=== PATIENT | female | born 1955 | race Caucasian/White ===

== ENCOUNTER 2018-03-15 11:17 | Inpatient (IN) ==
[2018-03-15 12:15] LABS: Basophils % 0.5 % (0.0-0.8); Eosinophils # 0.1 10*3/uL (0.0-0.87); Eosinophils % 1.4 % (0.00-10.9); Hematocrit 24.8 VOL% (35.7-47.0); Hemoglobin 6.7 GM/DL (12.0-16.0); Immature Granulocytes % 0.7 %; Immature Granulocytes Absolute 0.03 #; Lymphocytes # 1.1 10*3/uL (1.4-4.0); Lymphocytes % 24.1 % (21.3-54.2); Mean Corpuscular Hemoglobin 21 PG (27-34); Mean Corpuscular Volume 76.3 FL (87-102); Mean Platelet Volume 9.2 FL (9.6-12.0); Monocytes # 0.5 10*3/uL (0.11-0.8); Monocytes % 11.6 % (1.7-12.7); Neutrophils # 2.7 10*3/uL (1.4-7.4); Neutrophils % 61.7 % (38.7-73.9); Platelet Count 282 T/CUMM (130-400); Red Blood Count 3.25 MC/CUMM (3.8-5.5); Red Cell Distribution Width 18.2 % (9.3-17.3); White Blood Count 4.4 T/CUMM (4-12)
[2018-03-15 12:36] LABS: Hypochromasia 2+; Microcytosis 1+; Ovalocytes Few; Platelet Estimate Normal; Polychromasia Slight; Tear Drop Cells Slight
[2018-03-15 12:37] LABS: Alanine Aminotransferase 18 U/L (13-56); Albumin 3.2 G/DL (3.4-5.0); Alkaline Phosphatase 136 U/L (45-117); Aspartate Amino Transferase 14 U/L (0-37); Bilirubin,Total < 0.39 MG/DL (0.2-1.0); Blood Urea Nitrogen 27 MG/DL (7-18); Calcium 7.8 MG/DL (8.5-10.1); Glucose 79 MG/DL (74-106); Osmolality,Calculated 282.4 MOS/KG (273-304); Potassium 3.4 MMOL/L (3.5-5.1); Sodium 140 MMOL/L (136-145)
[2018-03-15] MEDS ORDERED: SODIUM CHLORIDE 0.9% 1,000 ML IV PRN (13:08)
[2018-03-15] MEDS ORDERED: ACETAMINOPHEN 325 MG TABLET PO PRN (13:09)
[2018-03-15] MEDS ORDERED: ONDANSETRON 4 MG/2 ML VIAL IV PRN (13:09)
[2018-03-15] MEDS ORDERED: SODIUM CHLORIDE 0.9% 1,000 ML IV SCH (13:30)
[2018-03-15] MEDS ORDERED: INFLUENZA VIRUS VACCINE 0.5 ML SYRINGE IM ONE (14:57)
[2018-03-15 16:09] LABS: Basophils % 0.4 % (0.0-0.8); Eosinophils # 0.1 10*3/uL (0.0-0.87); Eosinophils % 1.5 % (0.00-10.9); Hematocrit 24.1 VOL% (35.7-47.0); Hemoglobin 6.5 GM/DL (12.0-16.0); Immature Granulocytes % 0.4 %; Immature Granulocytes Absolute 0.02 #; Lymphocytes # 1.1 10*3/uL (1.4-4.0); Lymphocytes % 23.6 % (21.3-54.2); Mean Corpuscular Hemoglobin 20 PG (27-34); Mean Corpuscular Volume 75.5 FL (87-102); Mean Platelet Volume 9.7 FL (9.6-12.0); Monocytes # 0.5 10*3/uL (0.11-0.8); Monocytes % 9.6 % (1.7-12.7); Neutrophils % 64.5 % (38.7-73.9); Platelet Count 271 T/CUMM (130-400); Red Blood Count 3.19 MC/CUMM (3.8-5.5); Red Cell Distribution Width 18.1 % (9.3-17.3); White Blood Count 4.7 T/CUMM (4-12)
[2018-03-15 16:52] LABS: Folate > 24.0 NG/ML (5.4-24.0); Vitamin B12 1665 PG/ML (211-911)
[2018-03-15 17:12] LABS: Hypochromasia 2+; Polychromasia Few
[2018-03-15 17:13] LABS: Anisocytosis 1+; Microcytosis Slight
[2018-03-15 17:15] LABS: Platelet Estimate Normal
[2018-03-15 17:16] LABS: Sedimentation Rate-Westergren 40 MM/HR (0-30)
[2018-03-15] MEDS ORDERED: MAGNESIUM CHLORIDE 64 MG TABLET PO PRN (18:21)
[2018-03-15] MEDS: DOCUSATE SODIUM 100 MG CAPSULE PO SCH (22:15)
[2018-03-16] MEDS: POTASSIUM CHLORIDE INJ 20 MEQ in SODIUM CHLORIDE 0.9% 1,000 ML IV SCH ×2 (00:34→08:39)
[2018-03-16 05:05] LABS: Basophils % 0.2 % (0.0-0.8); Eosinophils # 0.1 10*3/uL (0.0-0.87); Eosinophils % 2.4 % (0.00-10.9); Immature Granulocytes % 0.2 %; Immature Granulocytes Absolute 0.01 #; Lymphocytes # 1.2 10*3/uL (1.4-4.0); Lymphocytes % 26.2 % (21.3-54.2); Mean Corpuscular HGB Conc 27.7 GM/DL (32-36); Mean Corpuscular Hemoglobin 22 PG (27-34); Mean Corpuscular Volume 77.8 FL (87-102); Mean Platelet Volume 10.8 FL (9.6-12.0); Monocytes # 0.4 10*3/uL (0.11-0.8); Monocytes % 8.2 % (1.7-12.7); Neutrophils # 2.9 10*3/uL (1.4-7.4); Neutrophils % 62.8 % (38.7-73.9); Red Blood Count 3.34 MC/CUMM (3.8-5.5); Red Cell Distribution Width 18.6 % (9.3-17.3); White Blood Count 4.6 T/CUMM (4-12)
[2018-03-16 05:07] LABS: Albumin 2.8 G/DL (3.4-5.0); Calcium 7.6 MG/DL (8.5-10.1); Free T4 (Free Thyroxine) 0.76 NG/DL (0.76-1.46); Potassium 3.4 MMOL/L (3.5-5.1); Risk Ratio 1.82; Thyroid Stimulating Hormone 1.78 uIU/ml (0.358-3.74); Total Protein 5.5 G/DL (6.4-8.3); VLDL CHOLESTEROL 11.6 MG/DL
[2018-03-16 05:09] LABS: Hemoglobin 7.2 GM/DL (12.0-16.0); Platelet Count 171 T/CUMM (130-400)
[2018-03-16 05:11] LABS: Anisocytosis 1+; Macrocytosis 1+; Platelet Estimate Normal
[2018-03-16] MEDS: DOCUSATE SODIUM 100 MG CAPSULE PO SCH ×2 (08:15→20:07)
[2018-03-16] MEDS: FLUoxetine 20 MG CAPSULE PO SCH (08:15)
[2018-03-16] MEDS: PANTOPRAZOLE 40 MG TABLET PO SCH (08:15)
[2018-03-16] MEDS: BUMETANIDE 1 MG TABLET PO SCH (08:15)
[2018-03-16] MEDS ORDERED: ONDANSETRON 4 MG/2 ML VIAL ONE (09:00)
[2018-03-16] MEDS ORDERED: PROPOFOL 200 MG/20 ML VIAL IV ONE (09:00)
[2018-03-16] MEDS ORDERED: LIDOCAINE 2% TOP JELLY 5 ML TUBE TOP ONE (09:00)
[2018-03-16] MEDS ORDERED: SODIUM CHLORIDE 0.9% 1,000 ML IV PRN (09:15)
[2018-03-16 10:59] LABS: Hemoglobin A1 (Alkaline) 98.3 % (96.5-98.5); Hemoglobin A2 (Alkaline) 1.7 % (1.5-3.5)
[2018-03-16] MEDS ORDERED: SODIUM CHLOR 0.9% KCL 20 MEQ 20 MEQ/1,000 ML BAG IV SCH (11:01)
[2018-03-16 11:18] LABS: Apearance,Urine CLEAR (Clear); Bilirubin,Urine Negative (Negative); Blood, Urine Negative (Negative); Glucose,Urine (UA) Negative (Negative); Ketones,Urine Negative (Negative); Mucus,Urine Occasional /LPF (Occasional); Nitrite,Urine Negative (Negative); Protein,Urine Negative; RBC,Urine 1 /HPF (0-4); Squamous Epithelial Cell,Urine Occasional /HPF (0-10); Urine Color Yellow (Yellow); Urine Specific Gravity 1.017 (1.001-1.035); WBC,Urine <1 /HPF (0-6)
[2018-03-16] MEDS: SODIUM CHLOR 0.9% KCL 20 MEQ 20 MEQ/1,000 ML BAG IV SCH ×2 (20:06→23:01)
[2018-03-17 03:06] LABS: Calcium 7.5 MG/DL (8.5-10.1); Osmolality,Calculated 284.8 MOS/KG (273-304); Potassium 3.7 MMOL/L (3.5-5.1)
[2018-03-17 03:14] LABS: Eosinophils # 0.1 10*3/uL (0.0-0.87); Eosinophils % 1.9 % (0.00-10.9); Hematocrit 29.1 VOL% (35.7-47.0); Hemoglobin 8.5 GM/DL (12.0-16.0); Immature Granulocytes % 0.5 %; Immature Granulocytes Absolute 0.02 #; Lymphocytes # 1.3 10*3/uL (1.4-4.0); Lymphocytes % 30.1 % (21.3-54.2); Mean Corpuscular HGB Conc 29.2 GM/DL (32-36); Mean Corpuscular Hemoglobin 23 PG (27-34); Mean Corpuscular Volume 78.6 FL (87-102); Mean Platelet Volume 9.8 FL (9.6-12.0); Monocytes # 0.5 10*3/uL (0.11-0.8); Monocytes % 11.3 % (1.7-12.7); Neutrophils # 2.3 10*3/uL (1.4-7.4); Neutrophils % 55.2 % (38.7-73.9); Platelet Count 223 T/CUMM (130-400); Red Cell Distribution Width 17.9 % (9.3-17.3); White Blood Count 4.2 T/CUMM (4-12)
[2018-03-17] MEDS: FLUoxetine 20 MG CAPSULE PO SCH (09:27)
[2018-03-17] MEDS: PANTOPRAZOLE 40 MG TABLET PO SCH (09:27)
[2018-03-17] MEDS: BUMETANIDE 1 MG TABLET PO SCH (09:27)
[2018-03-17] MEDS: DOCUSATE SODIUM 100 MG CAPSULE PO SCH (09:28)
[2018-03-17] MEDS: SODIUM CHLOR 0.9% KCL 20 MEQ 20 MEQ/1,000 ML BAG IV SCH ×3 (09:28→18:04)
[2018-03-18] MEDS: DOCUSATE SODIUM 100 MG CAPSULE PO SCH ×3 (01:02→21:09)
[2018-03-18] MEDS: SODIUM CHLOR 0.9% KCL 20 MEQ 20 MEQ/1,000 ML BAG IV SCH ×2 (01:40→09:40)
[2018-03-18 06:56] LABS: Calcium 7.9 MG/DL (8.5-10.1); Osmolality,Calculated 290.6 MOS/KG (273-304); Potassium 3.9 MMOL/L (3.5-5.1)
[2018-03-18 07:10] LABS: Basophils % 0.8 % (0.0-0.8); Eosinophils # 0.1 10*3/uL (0.0-0.87); Hematocrit 31.9 VOL% (35.7-47.0); Hemoglobin 9.1 GM/DL (12.0-16.0); Immature Granulocytes % 0.4 %; Immature Granulocytes Absolute 0.02 #; Lymphocytes % 18.8 % (21.3-54.2); Mean Corpuscular HGB Conc 28.5 GM/DL (32-36); Mean Corpuscular Hemoglobin 23 PG (27-34); Mean Corpuscular Volume 79.9 FL (87-102); Mean Platelet Volume 9.4 FL (9.6-12.0); Monocytes # 0.5 10*3/uL (0.11-0.8); Monocytes % 8.9 % (1.7-12.7); Neutrophils # 3.5 10*3/uL (1.4-7.4); Neutrophils % 69.1 % (38.7-73.9); Platelet Count 235 T/CUMM (130-400); Red Blood Count 3.99 MC/CUMM (3.8-5.5); Red Cell Distribution Width 18.6 % (9.3-17.3)
[2018-03-18] MEDS: FLUoxetine 20 MG CAPSULE PO SCH (08:55)
[2018-03-18] MEDS: BUMETANIDE 1 MG TABLET PO SCH (08:55)
[2018-03-18] MEDS: PANTOPRAZOLE 40 MG TABLET PO SCH (08:55)
[2018-03-18] MEDS ORDERED: BISACODYL 5 MG TABLET PO ONE (14:00)
[2018-03-18] MEDS ORDERED: POLYETHYLENE GLYCOL POWDER 255 GM BOTTLE PO ONE (15:30)
[2018-03-19] MEDS ORDERED: MAGNESIUM CITRATE 300 ML BOTTLE PO ONE (06:00)
[2018-03-19] MEDS: SODIUM CHLOR 0.9% KCL 20 MEQ 20 MEQ/1,000 ML BAG IV SCH ×4 (06:39→20:10)
[2018-03-19] MEDS ORDERED: FERROUS SULFATE 325 MG TABLET PO SCH (09:00)
[2018-03-19] MEDS ORDERED: PROPOFOL 200 MG/20 ML VIAL IV ONE (10:00)
[2018-03-19] MEDS ORDERED: LIDOCAINE 2% 5 ML VIAL ONE (10:00)
[2018-03-19] MEDS: BUMETANIDE 1 MG TABLET PO SCH (10:53)
[2018-03-19] MEDS: DOCUSATE SODIUM 100 MG CAPSULE PO SCH (10:53)
[2018-03-19] MEDS: FLUoxetine 20 MG CAPSULE PO SCH (10:54)
[2018-03-19] MEDS: PANTOPRAZOLE 40 MG TABLET PO SCH (10:54)
[2018-03-19 16:15] VITALS: BP 159/75
== END 2018-03-19 20:45 | disposition home or self-care (01) | DRG 378 ==
LOC: N.EDINP 11:17 → N.ED 11:17 → SUPCPDRO 13:08 → N.4E 14:19
PROVIDERS: ADMIT Family Medicine; ATTEND Family Medicine

== ENCOUNTER 2018-10-30 15:01 | Inpatient (IN) ==
[2018-10-30] MEDS ORDERED: ONDANSETRON 4 MG/2 ML VIAL IV PRN (15:50)
[2018-10-30] MEDS ORDERED: MAGNESIUM HYDROXIDE SUSP 30 ML UDCUP PO PRN (15:50)
[2018-10-30] MEDS ORDERED: DEXTROSE 5% NACL 0.9% 1,000 ML IV SCH (16:00)
[2018-10-30 17:06] LABS: Basophils % 0.6 % (0.0-0.8); Eosinophils # 0.1 10*3/uL (0.0-0.87); Eosinophils % 1.9 % (0.00-10.9); Hematocrit 24.5 VOL% (35.7-47.0); Hemoglobin 7.5 GM/DL (12.0-16.0); Immature Granulocytes % 1.2 %; Immature Granulocytes Absolute 0.08 #; Lymphocytes # 1.6 10*3/uL (1.4-4.0); Lymphocytes % 22.8 % (21.3-54.2); Mean Corpuscular HGB Conc 30.6 GM/DL (32-36); Mean Corpuscular Volume 98.8 FL (87-102); Monocytes % 6.5 % (1.7-12.7); Platelet Count 222 T/CUMM (130-400); Red Blood Count 2.48 MC/CUMM (3.8-5.5); White Blood Count 6.9 T/CUMM (4-12)
[2018-10-30 17:28] LABS: Alanine Aminotransferase 16 U/L (13-56); Albumin 3.1 G/DL (3.4-5.0); Alkaline Phosphatase 87 U/L (45-117); Aspartate Amino Transferase 16 U/L (0-37); Bilirubin,Total < 0.39 MG/DL (0.2-1.0); Blood Urea Nitrogen 38 MG/DL (7-18); Calcium 7.8 MG/DL (8.5-10.1); Glucose 93 MG/DL (74-106); Osmolality,Calculated 289.3 MOS/KG (273-304); Total Protein 5.8 G/DL (6.4-8.3)
[2018-10-30] MEDS ORDERED: POTASSIUM CHLORIDE RIDER 10 MEQ in PREMIX 1 EACH IV SCH (18:00)
[2018-10-30 18:18] LABS: Apearance,Urine CLEAR (Clear); Bilirubin,Urine Negative (Negative); Blood, Urine Negative (Negative); Glucose,Urine (UA) Negative (Negative); Ketones,Urine Negative (Negative); Mucus,Urine Occasional /LPF (Occasional); Nitrite,Urine Negative (Negative); Protein,Urine Negative; RBC,Urine 1 /HPF (0-4); Squamous Epithelial Cell,Urine Occasional /HPF (0-10); Urine Color Yellow (Yellow); Urine Specific Gravity 1.021 (1.001-1.035); Urine Urobilinogen < 2.0 EU/DL (0.2-1.0); WBC,Urine <1 /HPF (0-6)
[2018-10-30] MEDS: PANTOPRAZOLE 40 MG VIAL IV SCH (21:40)
[2018-10-30] MEDS: DEXT 5% NACL 0.9% KCL 20 MEQ 20 MEQ/1,000 ML BAG IV SCH (21:41)
[2018-10-30] MEDS: POTASSIUM CHLORIDE RIDER 10 MEQ in PREMIX 1 EACH IV SCH ×2 (21:43→22:51)
[2018-10-30] MEDS: DOCUSATE SODIUM 100 MG CAPSULE PO SCH (21:43)
[2018-10-30 21:55] LABS: Hematocrit 22.2 VOL% (35.7-47.0)
[2018-10-30 21:58] LABS: Hemoglobin 6.9 GM/DL (12.0-16.0)
[2018-10-31] MEDS ORDERED: SODIUM CHLORIDE 0.9% 1,000 ML IV PRN ×2 (00:24→07:07)
[2018-10-31 01:35] LABS: Alanine Aminotransferase 13 U/L (13-56); Albumin 2.6 G/DL (3.4-5.0); Alkaline Phosphatase 71 U/L (45-117); Aspartate Amino Transferase 14 U/L (0-37); Bilirubin,Total < 0.39 MG/DL (0.2-1.0); Blood Urea Nitrogen 30 MG/DL (7-18); Calcium 7.4 MG/DL (8.5-10.1); Ferritin 49.8 ng/ml (8-252); Glucose 99 MG/DL (74-106); HDL Cholesterol 56 MG/DL (40-60); Iron 36 UG/DL (50-170); Total Protein 4.7 G/DL (6.4-8.3); Triglycerides 59 MG/DL (2-150); VLDL CHOLESTEROL 11.8 MG/DL
[2018-10-31 08:28] LABS: Basophils % 0.8 % (0.0-0.8); Eosinophils # 0.1 10*3/uL (0.0-0.87); Eosinophils % 1.9 % (0.00-10.9); Immature Granulocytes % 0.5 %; Immature Granulocytes Absolute 0.02 #; Lymphocytes # 1.3 10*3/uL (1.4-4.0); Lymphocytes % 34.6 % (21.3-54.2); Mean Corpuscular HGB Conc 31.9 GM/DL (32-36); Mean Corpuscular Volume 93.9 FL (87-102); Mean Platelet Volume 9.6 FL (9.6-12.0); Monocytes % 7.1 % (1.7-12.7); Neutrophils % 55.1 % (38.7-73.9); Platelet Count 149 T/CUMM (130-400); Red Blood Count 2.77 MC/CUMM (3.8-5.5); Red Cell Distribution Width 17.7 % (9.3-17.3); White Blood Count 3.6 T/CUMM (4-12)
[2018-10-31 08:32] LABS: Hemoglobin 8.3 GM/DL (12.0-16.0)
[2018-10-31] MEDS: FLUoxetine 20 MG CAPSULE PO SCH (09:19)
[2018-10-31] MEDS: BUMETANIDE 1 MG TABLET PO SCH (09:19)
[2018-10-31] MEDS: DOCUSATE SODIUM 100 MG CAPSULE PO SCH ×2 (09:19→21:20)
[2018-10-31] MEDS: PANTOPRAZOLE 40 MG VIAL IV SCH (09:20)
[2018-10-31] MEDS: DEXT 5% NACL 0.9% KCL 20 MEQ 20 MEQ/1,000 ML BAG IV SCH ×2 (09:36→16:34)
[2018-10-31] MEDS: POTASSIUM CHLORIDE RIDER 10 MEQ in PREMIX 1 EACH IV SCH ×2 (09:36→10:57)
[2018-10-31] MEDS: ACETAMINOPHEN 325 MG TABLET PO PRN (22:20)
[2018-11-01] MEDS: DEXT 5% NACL 0.9% KCL 20 MEQ 20 MEQ/1,000 ML BAG IV SCH ×3 (00:41→18:03)
[2018-11-01 04:50] LABS: Basophils % 1.3 % (0.0-0.8); Eosinophils # 0.1 10*3/uL (0.0-0.87); Eosinophils % 2.7 % (0.00-10.9); Hematocrit 26.6 VOL% (35.7-47.0); Hemoglobin 8.3 GM/DL (12.0-16.0); Immature Granulocytes % 0.7 %; Immature Granulocytes Absolute 0.02 #; Lymphocytes % 34.2 % (21.3-54.2); Mean Corpuscular HGB Conc 31.2 GM/DL (32-36); Mean Corpuscular Volume 95.3 FL (87-102); Mean Platelet Volume 9.9 FL (9.6-12.0); Monocytes % 9.1 % (1.7-12.7); Platelet Count 161 T/CUMM (130-400); Red Blood Count 2.79 MC/CUMM (3.8-5.5)
[2018-11-01 05:22] LABS: Albumin 2.5 G/DL (3.4-5.0); Bilirubin,Total 0.6 MG/DL (0.2-1.0); Calcium 7.5 MG/DL (8.5-10.1); Osmolality,Calculated 288.6 MOS/KG (273-304); Total Protein 4.5 G/DL (6.4-8.3)
[2018-11-01] MEDS ORDERED: LACTATED RINGERS 1,000 ML IV SCH (08:00)
[2018-11-01] MEDS: PANTOPRAZOLE 40 MG VIAL IV SCH (08:10)
[2018-11-01] MEDS: FLUoxetine 20 MG CAPSULE PO SCH (09:10)
[2018-11-01] MEDS: BUMETANIDE 1 MG TABLET PO SCH (09:10)
[2018-11-01] MEDS: DOCUSATE SODIUM 100 MG CAPSULE PO SCH ×2 (09:10→20:04)
[2018-11-01] MEDS ORDERED: LIDOCAINE 2% 5 ML VIAL ONE (10:00)
[2018-11-01] MEDS ORDERED: PROPOFOL 200 MG/20 ML VIAL IV ONE (10:00)
[2018-11-01] MEDS: ACETAMINOPHEN 325 MG TABLET PO PRN (13:55)
[2018-11-01] MEDS ORDERED: MAGNESIUM CITRATE 300 ML BOTTLE PO ONE (18:00)
[2018-11-02] MEDS: DEXT 5% NACL 0.9% KCL 20 MEQ 20 MEQ/1,000 ML BAG IV SCH ×2 (02:21→11:10)
[2018-11-02 05:20] LABS: Eosinophils # 0.1 10*3/uL (0.0-0.87); Eosinophils % 1.7 % (0.00-10.9); Hematocrit 27.9 VOL% (35.7-47.0); Hemoglobin 8.5 GM/DL (12.0-16.0); Immature Granulocytes % 0.3 %; Immature Granulocytes Absolute 0.01 #; Lymphocytes # 0.8 10*3/uL (1.4-4.0); Lymphocytes % 26.4 % (21.3-54.2); Mean Corpuscular HGB Conc 30.5 GM/DL (32-36); Mean Corpuscular Volume 96.5 FL (87-102); Mean Platelet Volume 9.7 FL (9.6-12.0); Monocytes % 5.9 % (1.7-12.7); Neutrophils % 64.7 % (38.7-73.9); Platelet Count 173 T/CUMM (130-400); Red Blood Count 2.89 MC/CUMM (3.8-5.5); Red Cell Distribution Width 18.6 % (9.3-17.3)
[2018-11-02 05:48] LABS: Albumin 2.4 G/DL (3.4-5.0); Bilirubin,Total 0.8 MG/DL (0.2-1.0); Calcium 7.5 MG/DL (8.5-10.1); Osmolality,Calculated 288.4 MOS/KG (273-304); Total Protein 4.5 G/DL (6.4-8.3)
[2018-11-02] MEDS ORDERED: PANTOPRAZOLE 40 MG TABLET PO SCH (09:00)
[2018-11-02] MEDS: DOCUSATE SODIUM 100 MG CAPSULE PO SCH (09:03)
[2018-11-02] MEDS: FLUoxetine 20 MG CAPSULE PO SCH (09:03)
[2018-11-02] MEDS: BUMETANIDE 1 MG TABLET PO SCH (09:03)
[2018-11-02] MEDS: ACETAMINOPHEN 325 MG TABLET PO PRN (09:06)
[2018-11-02 11:57] VITALS: BP 109/42
== END 2018-11-02 14:52 | disposition home or self-care (01) | DRG 378 ==
LOC: N.2E 16:13
PROVIDERS: ADMIT Family Medicine; ATTEND Family Medicine

== ENCOUNTER 2019-01-16 15:49 | Inpatient (IN) ==
[2019-01-16] MEDS ORDERED: SODIUM CHLORIDE 0.9% 1,000 ML IV STA (16:18)
[2019-01-16 17:01] LABS: Basophils % 0.9 % (0.0-0.8); Eosinophils # 0.1 10*3/uL (0.0-0.87); Eosinophils % 1.4 % (0.00-10.9); Hematocrit 29.9 VOL% (35.7-47.0); Immature Granulocytes % 0.7 %; Immature Granulocytes Absolute 0.03 #; Lymphocytes # 0.7 10*3/uL (1.4-4.0); Lymphocytes % 16.4 % (21.3-54.2); Mean Corpuscular HGB Conc 30.1 GM/DL (32-36); Mean Corpuscular Volume 97.4 FL (87-102); Monocytes % 5.2 % (1.7-12.7); Neutrophils % 75.4 % (38.7-73.9); Platelet Count 206 T/CUMM (130-400); Red Blood Count 3.07 MC/CUMM (3.8-5.5); Red Cell Distribution Width 15.4 % (9.3-17.3); White Blood Count 4.4 T/CUMM (4-12)
[2019-01-16] MEDS ORDERED: PANTOPRAZOLE 40 MG VIAL IV STA (17:11)
[2019-01-16 17:13] LABS: INR 0.9; PT Patient Result 10.2 SECS (9.6-12.2); Partial Thromboplastin Time 24.7 SECS (20.8-36.0)
[2019-01-16 17:33] LABS: Alanine Aminotransferase 16 U/L (13-56); Albumin 2.8 G/DL (3.4-5.0); Alkaline Phosphatase 110 U/L (45-117); Aspartate Amino Transferase 16 U/L (0-37); Bilirubin,Total < 0.39 MG/DL (0.2-1.0); Blood Urea Nitrogen 37 MG/DL (7-18); Calcium 7.5 MG/DL (8.5-10.1); Estimated Glom Filtration Rate 123 ML/MIN; Glucose 102 MG/DL (74-106); Osmolality,Calculated 294.8 MOS/KG (273-304); Total Protein 5.1 G/DL (6.4-8.3)
[2019-01-16] MEDS ORDERED: MORPHINE 4 MG/1 ML VIAL IV PRN (18:23)
[2019-01-16] MEDS ORDERED: ACETAMINOPHEN 325 MG TABLET PO PRN (18:57)
[2019-01-16] MEDS ORDERED: ONDANSETRON 4 MG/2 ML VIAL IV PRN (18:57)
[2019-01-16] MEDS: SODIUM CHLORIDE 0.9% 1,000 ML IV SCH (19:57)
[2019-01-16 20:08] LABS: Hematocrit 26.2 VOL% (35.7-47.0); Hemoglobin 8.2 GM/DL (12.0-16.0)
[2019-01-16 22:31] LABS: Hematocrit 25.5 VOL% (35.7-47.0); Hemoglobin 7.8 GM/DL (12.0-16.0)
[2019-01-16] MEDS: GABAPENTIN 300 MG CAPSULE PO SCH (22:34)
[2019-01-16] MEDS: DOCUSATE SODIUM 100 MG CAPSULE PO SCH (22:36)
[2019-01-17 01:19] LABS: Hematocrit 25.1 VOL% (35.7-47.0); Hemoglobin 7.7 GM/DL (12.0-16.0)
[2019-01-17] MEDS: SODIUM CHLORIDE 0.9% 1,000 ML IV SCH ×3 (02:00→17:49)
[2019-01-17 04:50] LABS: Basophils % 0.5 % (0.0-0.8); Eosinophils # 0.1 10*3/uL (0.0-0.87); Eosinophils % 1.6 % (0.00-10.9); Hematocrit 25.5 VOL% (35.7-47.0); Hemoglobin 7.8 GM/DL (12.0-16.0); Immature Granulocytes % 0.5 %; Immature Granulocytes Absolute 0.02 #; Lymphocytes % 23.9 % (21.3-54.2); Mean Corpuscular HGB Conc 30.6 GM/DL (32-36); Monocytes % 5.8 % (1.7-12.7); Neutrophils % 67.7 % (38.7-73.9); Platelet Count 190 T/CUMM (130-400); Red Blood Count 2.63 MC/CUMM (3.8-5.5); Red Cell Distribution Width 15.4 % (9.3-17.3); White Blood Count 4.3 T/CUMM (4-12)
[2019-01-17 05:15] LABS: Alanine Aminotransferase 14 U/L (13-56); Albumin 2.3 G/DL (3.4-5.0); Alkaline Phosphatase 89 U/L (45-117); Aspartate Amino Transferase 15 U/L (0-37); Bilirubin,Total < 0.39 MG/DL (0.2-1.0); Blood Urea Nitrogen 32 MG/DL (7-18); Calcium 7.2 MG/DL (8.5-10.1); Estimated Glom Filtration Rate 131 ML/MIN; Glucose 85 MG/DL (74-106); HDL Cholesterol 47 MG/DL (40-60); Osmolality,Calculated 295.6 MOS/KG (273-304); Risk Ratio 2.36; Total Protein 4.7 G/DL (6.4-8.3); Triglycerides 96 MG/DL (2-150); VLDL CHOLESTEROL 19.2 MG/DL
[2019-01-17] MEDS ORDERED: SODIUM CHLORIDE 0.9% 1,000 ML IV PRN (07:22)
[2019-01-17] MEDS: GABAPENTIN 300 MG CAPSULE PO SCH ×2 (08:08→20:30)
[2019-01-17] MEDS: DOCUSATE SODIUM 100 MG CAPSULE PO SCH ×2 (08:08→20:30)
[2019-01-17] MEDS: PANTOPRAZOLE 40 MG TABLET PO SCH (08:08)
[2019-01-17] MEDS: FLUoxetine 20 MG CAPSULE PO SCH (08:08)
[2019-01-17 09:51] LABS: Hemoglobin 7.5 GM/DL (12.0-16.0)
[2019-01-17] MEDS: BUMETANIDE 1 MG TABLET PO SCH (18:08)
[2019-01-18 01:24] LABS: Hematocrit 28.6 VOL% (35.7-47.0); Hemoglobin 9.2 GM/DL (12.0-16.0)
[2019-01-18 06:07] LABS: Hematocrit 29.3 VOL% (35.7-47.0); Hemoglobin 9.3 GM/DL (12.0-16.0)
[2019-01-18 06:41] LABS: Albumin 2.4 G/DL (3.4-5.0); Bilirubin,Total 0.9 MG/DL (0.2-1.0); Calcium 7.3 MG/DL (8.5-10.1); Osmolality,Calculated 295.4 MOS/KG (273-304); Total Protein 4.7 G/DL (6.4-8.3)
[2019-01-18 07:17] LABS: Basophils % 0.7 % (0.0-0.8); Eosinophils # 0.1 10*3/uL (0.0-0.87); Eosinophils % 2.3 % (0.00-10.9); Hemoglobin 9.2 GM/DL (12.0-16.0); Immature Granulocytes % 0.9 %; Immature Granulocytes Absolute 0.04 #; Lymphocytes % 22.4 % (21.3-54.2); Mean Corpuscular HGB Conc 30.7 GM/DL (32-36); Mean Corpuscular Volume 94.9 FL (87-102); Mean Platelet Volume 9.8 FL (9.6-12.0); Monocytes % 5.7 % (1.7-12.7); Platelet Count 191 T/CUMM (130-400); Red Blood Count 3.16 MC/CUMM (3.8-5.5); Red Cell Distribution Width 17.1 % (9.3-17.3); White Blood Count 4.4 T/CUMM (4-12)
[2019-01-18] MEDS: SODIUM CHLORIDE 0.9% 1,000 ML IV SCH ×3 (07:45→20:32)
[2019-01-18] MEDS ORDERED: PSEUDOEPHEDRINE 30 MG TABLET PO PRN (08:05)
[2019-01-18] MEDS ORDERED: PROPOFOL 200 MG/20 ML VIAL IV ONE (10:00)
[2019-01-18] MEDS ORDERED: LIDOCAINE 100 MG/5 ML SYRINGE ONE (10:00)
[2019-01-18 12:54] LABS: Apearance,Urine CLEAR (Clear); Bilirubin,Urine Negative (Negative); Blood, Urine Negative (Negative); Glucose,Urine (UA) Negative (Negative); Ketones,Urine Negative (Negative); Mucus,Urine Occasional /LPF (Occasional); Nitrite,Urine Negative (Negative); Protein,Urine Negative; RBC,Urine <1 /HPF (0-4); Squamous Epithelial Cell,Urine Occasional /HPF (0-10); Urine Color Yellow (Yellow); Urine Specific Gravity 1.018 (1.001-1.035); WBC,Urine <1 /HPF (0-6)
[2019-01-18] MEDS: PANTOPRAZOLE 40 MG TABLET PO SCH (14:10)
[2019-01-18] MEDS: FLUoxetine 20 MG CAPSULE PO SCH (14:10)
[2019-01-18] MEDS: BUMETANIDE 1 MG TABLET PO SCH (14:11)
[2019-01-18] MEDS: DOCUSATE SODIUM 100 MG CAPSULE PO SCH ×2 (14:11→20:31)
[2019-01-18] MEDS: GABAPENTIN 300 MG CAPSULE PO SCH ×2 (14:11→20:31)
[2019-01-18] MEDS: AZITHROMYCIN 250 MG TABLET PO SCH (14:13)
[2019-01-18] MEDS: LACTATED RINGERS 1,000 ML IV SCH (15:20)
[2019-01-19 04:34] LABS: Basophils % 0.9 % (0.0-0.8); Eosinophils # 0.1 10*3/uL (0.0-0.87); Eosinophils % 1.8 % (0.00-10.9); Hematocrit 25.4 VOL% (35.7-47.0); Immature Granulocytes % 0.6 %; Immature Granulocytes Absolute 0.02 #; Lymphocytes # 0.9 10*3/uL (1.4-4.0); Lymphocytes % 27.3 % (21.3-54.2); Mean Corpuscular HGB Conc 31.5 GM/DL (32-36); Mean Corpuscular Volume 92.4 FL (87-102); Mean Platelet Volume 9.9 FL (9.6-12.0); Monocytes % 7.7 % (1.7-12.7); Neutrophils % 61.7 % (38.7-73.9); Platelet Count 169 T/CUMM (130-400); Red Blood Count 2.75 MC/CUMM (3.8-5.5); Red Cell Distribution Width 17.1 % (9.3-17.3); White Blood Count 3.3 T/CUMM (4-12)
[2019-01-19 05:01] LABS: Calcium 7.4 MG/DL (8.5-10.1); Osmolality,Calculated 285.1 MOS/KG (273-304)
[2019-01-19] MEDS: DOCUSATE SODIUM 100 MG CAPSULE PO SCH ×2 (09:37→20:25)
[2019-01-19] MEDS: BUMETANIDE 1 MG TABLET PO SCH (09:37)
[2019-01-19] MEDS: PANTOPRAZOLE 40 MG TABLET PO SCH (09:37)
[2019-01-19] MEDS: AZITHROMYCIN 250 MG TABLET PO SCH (09:37)
[2019-01-19] MEDS: GABAPENTIN 300 MG CAPSULE PO SCH ×2 (09:37→20:25)
[2019-01-19] MEDS: FLUoxetine 20 MG CAPSULE PO SCH (09:39)
[2019-01-19] MEDS: LACTATED RINGERS 1,000 ML IV SCH (10:30)
[2019-01-19] MEDS: SODIUM CHLORIDE 0.9% 1,000 ML IV SCH (10:30)
[2019-01-19 11:35] LABS: Hemoglobin 8.4 GM/DL (12.0-16.0)
[2019-01-19 17:45] LABS: Hematocrit 28.9 VOL% (35.7-47.0); Hemoglobin 9.1 GM/DL (12.0-16.0)
[2019-01-19 23:55] LABS: Hematocrit 26.1 VOL% (35.7-47.0); Hemoglobin 8.3 GM/DL (12.0-16.0)
[2019-01-20 05:53] LABS: Basophils % 0.8 % (0.0-0.8); Eosinophils # 0.1 10*3/uL (0.0-0.87); Eosinophils % 2.1 % (0.00-10.9); Hematocrit 27.3 VOL% (35.7-47.0); Hemoglobin 8.6 GM/DL (12.0-16.0); Immature Granulocytes Absolute 0.04 #; Lymphocytes # 0.9 10*3/uL (1.4-4.0); Lymphocytes % 23.7 % (21.3-54.2); Mean Corpuscular HGB Conc 31.5 GM/DL (32-36); Mean Corpuscular Volume 95.1 FL (87-102); Mean Platelet Volume 9.8 FL (9.6-12.0); Monocytes % 5.7 % (1.7-12.7); Neutrophils % 66.7 % (38.7-73.9); Platelet Count 190 T/CUMM (130-400); Red Blood Count 2.87 MC/CUMM (3.8-5.5); Red Cell Distribution Width 17.9 % (9.3-17.3); White Blood Count 3.8 T/CUMM (4-12)
[2019-01-20 08:01] VITALS: BP 103/55
[2019-01-20] MEDS: GABAPENTIN 300 MG CAPSULE PO SCH (08:29)
[2019-01-20] MEDS: FLUoxetine 20 MG CAPSULE PO SCH (08:29)
[2019-01-20] MEDS: AZITHROMYCIN 250 MG TABLET PO SCH (08:29)
[2019-01-20] MEDS: DOCUSATE SODIUM 100 MG CAPSULE PO SCH (08:29)
[2019-01-20] MEDS: BUMETANIDE 1 MG TABLET PO SCH (08:29)
[2019-01-20] MEDS: PANTOPRAZOLE 40 MG TABLET PO SCH (08:30)
== END 2019-01-20 11:53 | disposition home or self-care (01) | DRG 378 ==
LOC: N.ED 15:49 → N.EDINP 17:12 → N.2E 17:33
PROVIDERS: ADMIT Family Medicine; ATTEND Family Medicine

== ENCOUNTER 2020-01-08 17:05 | Inpatient (IN) ==
[2020-01-08] MEDS ORDERED: PANTOPRAZOLE 40 MG TABLET PO STA (17:58)
[2020-01-08] MEDS ORDERED: SODIUM CHLORIDE 0.9% 500 ML IV STA (17:58)
[2020-01-08] MEDS ORDERED: ONDANSETRON 4 MG/2 ML VIAL IV STA (17:58)
[2020-01-08] MEDS ORDERED: PANTOPRAZOLE 40 MG VIAL IV ONE (18:05)
[2020-01-08 18:11] LABS: Basophils % 0.4 % (0.0-0.8); Eosinophils # 0.1 10*3/uL (0.0-0.87); Eosinophils % 1.1 % (0.00-10.9); Hematocrit 22.4 VOL% (35.7-47.0); Hemoglobin 6.8 GM/DL (12.0-16.0); Immature Granulocytes % 0.7 %; Immature Granulocytes Absolute 0.06 #; Lymphocytes # 1.3 10*3/uL (1.4-4.0); Lymphocytes % 14.6 % (21.3-54.2); Mean Corpuscular HGB Conc 30.4 GM/DL (32-36); Mean Corpuscular Volume 99.1 FL (87-102); Monocytes % 6.6 % (1.7-12.7); Neutrophils % 76.6 % (38.7-73.9); Platelet Count 251 T/CUMM (130-400); Red Blood Count 2.26 MC/CUMM (3.8-5.5); Red Cell Distribution Width 17.7 % (9.3-17.3)
[2020-01-08] MEDS ORDERED: PANTOPRAZOLE 40 MG VIAL IV STA (18:16)
[2020-01-08 18:21] LABS: PT Patient Result 10.3 SECS (9.8-11.9)
[2020-01-08 18:38] LABS: Alanine Aminotransferase 15 U/L (13-56); Albumin 2.5 G/DL (3.4-5.0); Alkaline Phosphatase 101 U/L (45-117); Aspartate Amino Transferase 16 U/L (0-37); Bilirubin,Total < 0.39 MG/DL (0.2-1.0); Blood Urea Nitrogen 42 MG/DL (7-18); Calcium 7.7 MG/DL (8.5-10.1); Estimated Glom Filtration Rate 108 ML/MIN; Glucose 102 MG/DL (74-106); Osmolality,Calculated 298.7 MOS/KG (273-304); Total Protein 4.5 G/DL (6.4-8.3)
[2020-01-09] MEDS ORDERED: SODIUM CHLORIDE 0.9% 1,000 ML IV PRN (00:01)
[2020-01-09] MEDS: DOCUSATE SODIUM 100 MG CAPSULE PO SCH ×4 (01:10→21:18)
[2020-01-09] MEDS: SODIUM CHLORIDE 0.9% 1,000 ML IV SCH ×3 (01:11→18:48)
[2020-01-09] MEDS ORDERED: FUROSEMIDE 20 MG/2 ML VIAL IV ONE (02:45)
[2020-01-09] MEDS ORDERED: INFLUENZA VIRUS VACCINE 0.5 ML SYRINGE IM ONE (02:50)
[2020-01-09] MEDS: BUMETANIDE 1 MG TABLET PO SCH ×2 (10:23→12:32)
[2020-01-09] MEDS: FLUoxetine 20 MG CAPSULE PO SCH ×2 (10:24→12:32)
[2020-01-09] MEDS: GABAPENTIN 300 MG CAPSULE PO SCH ×3 (10:24→20:30)
[2020-01-09] MEDS: POTASSIUM GLUCONATE 500 MG TABLET PO SCH ×2 (10:24→12:33)
[2020-01-09] MEDS: MULTIVITAMIN (CENTRUM) TABLET PO SCH ×2 (10:24→12:32)
[2020-01-09 11:48] LABS: Basophils % 0.5 % (0.0-0.8); Eosinophils # 0.1 10*3/uL (0.0-0.87); Eosinophils % 1.8 % (0.00-10.9); Hematocrit 23.3 VOL% (35.7-47.0); Hemoglobin 7.4 GM/DL (12.0-16.0); Immature Granulocytes % 0.7 %; Immature Granulocytes Absolute 0.03 #; Lymphocytes % 22.8 % (21.3-54.2); Mean Corpuscular HGB Conc 31.8 GM/DL (32-36); Mean Platelet Volume 9.8 FL (9.6-12.0); Monocytes % 7.1 % (1.7-12.7); Neutrophils % 67.1 % (38.7-73.9); Platelet Count 181 T/CUMM (130-400); Red Blood Count 2.48 MC/CUMM (3.8-5.5); Red Cell Distribution Width 17.2 % (9.3-17.3); White Blood Count 4.4 T/CUMM (4-12)
[2020-01-09 12:01] LABS: Alanine Aminotransferase 12 U/L (13-56); Albumin 2.2 G/DL (3.4-5.0); Alkaline Phosphatase 82 U/L (45-117); Aspartate Amino Transferase 16 U/L (0-37); Bilirubin,Total < 0.39 MG/DL (0.2-1.0); Blood Urea Nitrogen 30 MG/DL (7-18); Calcium 7.5 MG/DL (8.5-10.1); Estimated Glom Filtration Rate 130 ML/MIN; Glucose 86 MG/DL (74-106); Osmolality,Calculated 287.1 MOS/KG (273-304); Total Protein 4.4 G/DL (6.4-8.3)
[2020-01-09] MEDS: PANTOPRAZOLE 40 MG VIAL IV SCH (12:29)
[2020-01-10] MEDS: ACETAMINOPHEN 325 MG TABLET PO PRN ×2 (05:43→22:34)
[2020-01-10] MEDS: BUMETANIDE 1 MG TABLET PO SCH (10:35)
[2020-01-10] MEDS: MULTIVITAMIN (CENTRUM) TABLET PO SCH (10:36)
[2020-01-10] MEDS: POTASSIUM GLUCONATE 500 MG TABLET PO SCH (10:36)
[2020-01-10] MEDS: GABAPENTIN 300 MG CAPSULE PO SCH ×2 (10:36→21:12)
[2020-01-10] MEDS: FLUoxetine 20 MG CAPSULE PO SCH (10:36)
[2020-01-10] MEDS: PANTOPRAZOLE 40 MG VIAL IV SCH (10:36)
[2020-01-10] MEDS: DOCUSATE SODIUM 100 MG CAPSULE PO SCH ×2 (10:37→21:13)
[2020-01-10] MEDS: ONDANSETRON 4 MG/2 ML VIAL IV PRN (17:19)
[2020-01-10] MEDS: SODIUM CHLORIDE 0.9% 1,000 ML IV SCH ×2 (19:15)
[2020-01-11] MEDS: SODIUM CHLORIDE 0.9% 1,000 ML IV SCH ×2 (04:12→21:13)
[2020-01-11 06:17] LABS: Basophils % 0.7 % (0.0-0.8); Eosinophils # 0.1 10*3/uL (0.0-0.87); Eosinophils % 2.3 % (0.00-10.9); Hematocrit 23.6 VOL% (35.7-47.0); Hemoglobin 7.2 GM/DL (12.0-16.0); Immature Granulocytes % 0.5 %; Immature Granulocytes Absolute 0.02 #; Lymphocytes # 0.8 10*3/uL (1.4-4.0); Lymphocytes % 17.7 % (21.3-54.2); Mean Corpuscular HGB Conc 30.5 GM/DL (32-36); Monocytes % 8.6 % (1.7-12.7); Neutrophils % 70.2 % (38.7-73.9); Platelet Count 192 T/CUMM (130-400); Red Blood Count 2.51 MC/CUMM (3.8-5.5); Red Cell Distribution Width 16.3 % (9.3-17.3); White Blood Count 4.3 T/CUMM (4-12)
[2020-01-11] MEDS: GABAPENTIN 300 MG CAPSULE PO SCH ×2 (09:27→21:14)
[2020-01-11] MEDS: BUMETANIDE 1 MG TABLET PO SCH (09:27)
[2020-01-11] MEDS: MULTIVITAMIN (CENTRUM) TABLET PO SCH (09:27)
[2020-01-11] MEDS: POTASSIUM GLUCONATE 500 MG TABLET PO SCH (09:27)
[2020-01-11] MEDS: DOCUSATE SODIUM 100 MG CAPSULE PO SCH ×2 (09:27→21:14)
[2020-01-11] MEDS: PANTOPRAZOLE 40 MG VIAL IV SCH (09:28)
[2020-01-11] MEDS: FLUoxetine 20 MG CAPSULE PO SCH (09:28)
[2020-01-12] MEDS: SODIUM CHLORIDE 0.9% 1,000 ML IV SCH ×4 (00:57→22:34)
[2020-01-12 06:37] LABS: Eosinophils # 0.1 10*3/uL (0.0-0.87); Eosinophils % 2.7 % (0.00-10.9); Hematocrit 23.3 VOL% (35.7-47.0); Hemoglobin 7.3 GM/DL (12.0-16.0); Immature Granulocytes % 0.7 %; Immature Granulocytes Absolute 0.02 #; Lymphocytes # 0.9 10*3/uL (1.4-4.0); Lymphocytes % 30.5 % (21.3-54.2); Mean Corpuscular HGB Conc 31.3 GM/DL (32-36); Mean Corpuscular Volume 94.3 FL (87-102); Mean Platelet Volume 9.7 FL (9.6-12.0); Monocytes % 7.5 % (1.7-12.7); Neutrophils % 57.6 % (38.7-73.9); Platelet Count 193 T/CUMM (130-400); Red Blood Count 2.47 MC/CUMM (3.8-5.5); Red Cell Distribution Width 16.2 % (9.3-17.3)
[2020-01-12 06:55] LABS: Albumin 2.1 G/DL (3.4-5.0); Bilirubin,Total 0.7 MG/DL (0.2-1.0); Calcium 7.5 MG/DL (8.5-10.1); Osmolality,Calculated 288.6 MOS/KG (273-304); Total Protein 4.2 G/DL (6.4-8.3)
[2020-01-12] MEDS: BUMETANIDE 1 MG TABLET PO SCH (09:27)
[2020-01-12] MEDS: MULTIVITAMIN (CENTRUM) TABLET PO SCH (09:28)
[2020-01-12] MEDS: GABAPENTIN 300 MG CAPSULE PO SCH ×2 (09:28→21:32)
[2020-01-12] MEDS: POTASSIUM GLUCONATE 500 MG TABLET PO SCH (09:28)
[2020-01-12] MEDS: DOCUSATE SODIUM 100 MG CAPSULE PO SCH ×2 (09:28→21:33)
[2020-01-12] MEDS: FLUoxetine 20 MG CAPSULE PO SCH (09:29)
[2020-01-12] MEDS: PANTOPRAZOLE 40 MG VIAL IV SCH (09:33)
[2020-01-12] MEDS ORDERED: POTASSIUM CHLORIDE 20 MEQ TABLET PO ONE (14:11)
[2020-01-12] MEDS ORDERED: SODIUM CHLORIDE 0.9% 1,000 ML IV PRN (14:12)
[2020-01-12] MEDS: ONDANSETRON 4 MG/2 ML VIAL IV PRN (22:33)
[2020-01-12] MEDS ORDERED: FUROSEMIDE 20 MG/2 ML VIAL IV ONE (23:03)
[2020-01-13 06:03] LABS: Basophils % 0.9 % (0.0-0.8); Eosinophils # 0.1 10*3/uL (0.0-0.87); Eosinophils % 2.6 % (0.00-10.9); Hematocrit 29.2 VOL% (35.7-47.0); Immature Granulocytes % 0.3 %; Immature Granulocytes Absolute 0.01 #; Lymphocytes # 0.8 10*3/uL (1.4-4.0); Lymphocytes % 23.2 % (21.3-54.2); Mean Corpuscular HGB Conc 32.2 GM/DL (32-36); Mean Corpuscular Volume 94.2 FL (87-102); Mean Platelet Volume 9.8 FL (9.6-12.0); Monocytes % 7.9 % (1.7-12.7); Neutrophils % 65.1 % (38.7-73.9); Platelet Count 191 T/CUMM (130-400); Red Cell Distribution Width 15.6 % (9.3-17.3); White Blood Count 3.4 T/CUMM (4-12)
[2020-01-13 06:20] LABS: Hemoglobin 9.4 GM/DL (12.0-16.0)
[2020-01-13 06:23] LABS: Calcium 7.6 MG/DL (8.5-10.1); Osmolality,Calculated 283.8 MOS/KG (273-304)
[2020-01-13] MEDS: DOCUSATE SODIUM 100 MG CAPSULE PO SCH ×2 (09:42→20:36)
[2020-01-13] MEDS: FLUoxetine 20 MG CAPSULE PO SCH (09:42)
[2020-01-13] MEDS: MULTIVITAMIN (CENTRUM) TABLET PO SCH (09:42)
[2020-01-13] MEDS: POTASSIUM GLUCONATE 500 MG TABLET PO SCH (09:42)
[2020-01-13] MEDS: GABAPENTIN 300 MG CAPSULE PO SCH ×2 (09:42→20:36)
[2020-01-13] MEDS: BUMETANIDE 1 MG TABLET PO SCH (09:42)
[2020-01-13] MEDS: PANTOPRAZOLE 40 MG VIAL IV SCH (09:46)
[2020-01-13 11:14] LABS: Bilirubin,Urine Negative (Negative); Blood, Urine Negative (Negative); Glucose,Urine (UA) Negative (Negative); Ketones,Urine Negative (Negative); Mucus,Urine Occasional /LPF (Occasional); Nitrite,Urine Negative (Negative); Protein,Urine Negative; RBC,Urine 1 /HPF (0-4); Urine Appearance CLEAR (Clear); Urine Color Straw (Yellow); Urine Specific Gravity 1.004 (1.001-1.035); Urine Urobilinogen < 2.0 EU/DL (0.2-1.0); WBC,Urine 1 /HPF (0-6)
[2020-01-13] MEDS: SODIUM CHLORIDE 0.9% 1,000 ML IV SCH ×2 (16:30→16:34)
[2020-01-14 05:38] LABS: Basophils % 1.1 % (0.0-0.8); Eosinophils # 0.1 10*3/uL (0.0-0.87); Eosinophils % 2.9 % (0.00-10.9); Hematocrit 30.4 VOL% (35.7-47.0); Hemoglobin 9.5 GM/DL (12.0-16.0); Immature Granulocytes % 0.3 %; Immature Granulocytes Absolute 0.01 #; Lymphocytes # 0.8 10*3/uL (1.4-4.0); Lymphocytes % 21.8 % (21.3-54.2); Mean Corpuscular HGB Conc 31.3 GM/DL (32-36); Mean Corpuscular Volume 94.4 FL (87-102); Mean Platelet Volume 9.8 FL (9.6-12.0); Neutrophils % 65.9 % (38.7-73.9); Platelet Count 212 T/CUMM (130-400); Red Blood Count 3.22 MC/CUMM (3.8-5.5); Red Cell Distribution Width 15.6 % (9.3-17.3); White Blood Count 3.8 T/CUMM (4-12)
[2020-01-14 05:56] LABS: Calcium 7.4 MG/DL (8.5-10.1); Osmolality,Calculated 284.8 MOS/KG (273-304)
[2020-01-14] MEDS ORDERED: POTASSIUM CHLORIDE INJ 20 MEQ in SODIUM CHLORIDE 0.9% 1,000 ML IV SCH (08:13)
[2020-01-14] MEDS ORDERED: AZITHROMYCIN 250 MG TABLET PO ONE (09:00)
[2020-01-14] MEDS ORDERED: LORATADINE/PSEUDOEPH 5-120 MG (12 HR) TABLET PO SCH (09:00)
[2020-01-14] MEDS: MULTIVITAMIN (CENTRUM) TABLET PO SCH (09:24)
[2020-01-14] MEDS: GABAPENTIN 300 MG CAPSULE PO SCH ×2 (09:25→20:20)
[2020-01-14] MEDS: FLUoxetine 20 MG CAPSULE PO SCH (09:25)
[2020-01-14] MEDS: BUMETANIDE 1 MG TABLET PO SCH (09:26)
[2020-01-14] MEDS: DOCUSATE SODIUM 100 MG CAPSULE PO SCH ×2 (09:26→20:20)
[2020-01-14] MEDS: PANTOPRAZOLE 40 MG VIAL IV SCH (09:31)
[2020-01-14] MEDS ORDERED: POTASSIUM CHLORIDE 20 MEQ TABLET PO PRN (10:00)
[2020-01-14] MEDS: SODIUM CHLOR 0.9% KCL 20 MEQ 20 MEQ/1,000 ML BAG IV SCH ×2 (10:30→18:20)
[2020-01-14] MEDS: POTASSIUM GLUCONATE 500 MG TABLET PO SCH (10:30)
[2020-01-14] MEDS: POTASSIUM CHLORIDE RIDER 10 MEQ in PREMIX 1 EACH IV SCH ×2 (10:31→11:49)
[2020-01-14] MEDS: SODIUM CHLORIDE 0.9% 1,000 ML IV SCH (12:15)
[2020-01-15 05:50] LABS: Basophils % 0.9 % (0.0-0.8); Eosinophils # 0.1 10*3/uL (0.0-0.87); Eosinophils % 2.6 % (0.00-10.9); Hematocrit 30.2 VOL% (35.7-47.0); Hemoglobin 9.5 GM/DL (12.0-16.0); Immature Granulocytes % 0.6 %; Immature Granulocytes Absolute 0.02 #; Lymphocytes # 0.8 10*3/uL (1.4-4.0); Lymphocytes % 22.2 % (21.3-54.2); Mean Corpuscular HGB Conc 31.5 GM/DL (32-36); Mean Platelet Volume 9.4 FL (9.6-12.0); Monocytes % 7.4 % (1.7-12.7); Neutrophils % 66.3 % (38.7-73.9); Platelet Count 204 T/CUMM (130-400); Red Blood Count 3.18 MC/CUMM (3.8-5.5); Red Cell Distribution Width 14.8 % (9.3-17.3); White Blood Count 3.5 T/CUMM (4-12)
[2020-01-15 06:26] LABS: Calcium 7.9 MG/DL (8.5-10.1); Osmolality,Calculated 286.8 MOS/KG (273-304)
[2020-01-15 07:23] VITALS: BP 113/55
[2020-01-15] MEDS: SODIUM CHLOR 0.9% KCL 20 MEQ 20 MEQ/1,000 ML BAG IV SCH (07:35)
[2020-01-15] MEDS ORDERED: AZITHROMYCIN 250 MG TABLET PO SCH (09:00)
[2020-01-15] MEDS ORDERED: LORATADINE 10 MG TABLET PO SCH (09:00)
[2020-01-15] MEDS ORDERED: PSEUDOEPHEDRINE 30 MG TABLET PO SCH (09:00)
[2020-01-15] MEDS: PANTOPRAZOLE 40 MG VIAL IV SCH (09:00)
[2020-01-15] MEDS: POTASSIUM GLUCONATE 500 MG TABLET PO SCH (09:37)
[2020-01-15] MEDS: DOCUSATE SODIUM 100 MG CAPSULE PO SCH (09:37)
[2020-01-15] MEDS: GABAPENTIN 300 MG CAPSULE PO SCH (09:37)
[2020-01-15] MEDS: BUMETANIDE 1 MG TABLET PO SCH (09:37)
[2020-01-15] MEDS: MULTIVITAMIN (CENTRUM) TABLET PO SCH (09:37)
[2020-01-15] MEDS: FLUoxetine 20 MG CAPSULE PO SCH (09:38)
== END 2020-01-15 10:20 | disposition home or self-care (01) | DRG 812 ==
LOC: N.ED 17:05 → N.EDINP 18:52 → N.3E 20:59
PROVIDERS: ADMIT Family Medicine; ATTEND Family Medicine